=== PATIENT | male | born 1950 | race Caucasian/White ===

== ENCOUNTER → 2016-08-24 | Outpatient (CLI) | payer OTHER | END | disposition home or self-care (01) | LOC: RD 12:01 | DX: J40 Bronchitis, not specified as acute or chronic (principal); R07.9 Chest pain, unspecified ==

== ENCOUNTER → 2016-09-05 | Outpatient (CLI) | payer OTHER | END | disposition home or self-care (01) | LOC: CT 10:07 | PROC: BW24ZZZ Computerized Tomography (CT Scan) of Chest and Abdomen (ICD-10-PCS; principal; 2016-09-05) | DX: R09.1 Pleurisy (principal) ==